=== PATIENT | female | born 1970 | race Caucasian/White ===

== ENCOUNTER 2018-01-26 16:04 | Outpatient (CLI) | payer OTHER | END 2018-01-26 16:05 | disposition home or self-care (01) | LOC: BICMAMMO 16:04 | PROVIDERS: ATTEND Obstetrics & Gynecology | DX: Z12.31 Encounter for screening mammogram for malignant neoplasm of breast (principal) | CPT/HCPCS: 77063; 77067 ==

== ENCOUNTER 2022-09-27 10:46 | Emergency (ER) | payer BC, OTHER ==
[2022-09-27] MEDS ORDERED: Ondansetron PF 4 MG/2 ML Vial ONE (11:11)
[2022-09-27] MEDS ORDERED: Ketorolac Tromethamine 30 MG/ML VIAL ONE (11:11)
[2022-09-27] MEDS ORDERED: HYDROmorphone 0.5 MG/0.5 ML SYRINGE ONE (11:37)
== END 2022-09-27 12:43 | disposition home or self-care (01) ==
LOC: ERS 10:46
DX: U07.1 COVID-19 (principal); H66.41 Suppurative otitis media, unspecified, right ear; H72.91 Unspecified perforation of tympanic membrane, right ear
CPT/HCPCS: 96374; 96375; J1170; J1885; J2405